=== PATIENT | male | born 1970 | race Caucasian/White ===

== ENCOUNTER 2017-05-11 17:32 | Emergency (ER) | payer OTHER ==
[~2017-05-11] VITALS: Ht 177.8 cm; Wt 104.3 kg
--- NOTE | 2017-05-11 17:38 | NUR ---
CALLED IN WAITING ROOM NO ANSWER
--- NOTE | 2017-05-11 17:40 | NUR ---
PT AMBULATORY TO ER BED 09 C/O DIFFUSE ABDOMINAL PAIN W/ N/V X 5 DAYS. PT STATES HE STARTED HAVING DIARRHEA YESTERDAY. GOWNED AND PLACED ON MONITOR. NAD NOTED. AWAITING MD RAMOS.
--- NOTE | 2017-05-11 18:13 | NUR ---
DR CERAVNTES AT BEDSIDE FOR EVAL.
--- NOTE | 2017-05-11 18:23 | NUR ---
IV LINE STARTED. BLOOD DRAWN AND SENT TO LAB.
[2017-05-11] MEDS ORDERED: HYDROCODONE/APAP 10/325MG 1 EA TABLET ONE (18:29)
[2017-05-11] MEDS ORDERED: FAMOTIDINE/PF INJ 20 MG/2 ML VIAL IV ONE ×2 (18:29→18:30)
[2017-05-11] MEDS ORDERED: ONDANSETRON HCL/PF 4 MG/2 ML VIAL ONE (18:29)
[2017-05-11] MEDS ORDERED: ONDANSETRON HCL/PF 4 MG/2 ML VIAL IVP ONE (18:30)
[2017-05-11] MEDS ORDERED: IV NS 0.9% 1,000 ML BAG IV ONE (18:30)
[2017-05-11] MEDS ORDERED: HYDROCODONE/APAP 10/325MG 1 EA TABLET PO ONE (18:30)
[2017-05-11 18:39] LABS: CALCIUM, SERUM 9.2 mg/dL (8.5-10.1); CREATININE 1.3 mg/dL (0.6-1.3); POTASSIUM 4.6 mmol/L (3.5-5.1)
[2017-05-11 18:45] LABS: ALBUMIN 3.3 g/dL (3.4-5.0); BILIRUBIN,TOTAL 0.3 mg/dL (0.2-1.0); TOTAL PROTEIN, SERUM 6.9 g/dL (6.4-8.2)
[2017-05-11 19:04] LABS: BASOPHILS # (AUTO) 0.1 /CMM (0.0-0.2); BASOPHILS % (AUTO) 0.6 % (0.0-2.0); EOSINOPHILS # (AUTO) 0.1 /CMM (0.0-0.7); EOSINOPHILS % (AUTO) 1.4 % (0.0-6.0); HEMATOCRIT 39 % (39-51); HEMOGLOBIN 13.1 g/dL (13.5-17.5); LYMPHOCYTES # (AUTO) 2.8 /CMM (0.8-4.8); LYMPHOCYTES % (AUTO) 26.3 % (20.0-44.0); MEAN CORPUSCULAR HEMOGLOBIN 29 PG (26.0-33.0); MEAN CORPUSCULAR HGB CONC 34 g/dl (31.0-36.0); MEAN CORPUSCULAR VOLUME 84 fL (80-96); MONOCYTES # (AUTO) 0.6 /CMM (0.1-1.30); MONOCYTES % (AUTO) 5.8 % (2.0-12.0); NEUTROPHILS # (AUTO) 6.9 /CMM (1.8-8.9); NEUTROPHILS % (AUTO) 65.9 % (43.0-81.0); PLATELET COUNT (AUTO) 289 /CMM (150-450); RDW COEFFICIENT OF VARIATION 13.2 (11.5-15.0); RED BLOOD CELL COUNT(AUTO) 4.61 MIL/uL (4.5-6.0); WHITE BLOOD COUNT (AUTO) 10.5 K/uL (4.3-11.0)
--- NOTE | 2017-05-11 19:24 | NUR ---
PT NOW C/O S/I PLAN TO JUMP INTO THE [facility]ACKS. DR BILLY MULLINS.
--- NOTE | 2017-05-11 19:50 | NUR ---
CALLED [facility] FOR PSYCH EVAL, ETA 1 HOUR
[2017-05-11 20:00] LABS: APPEARANCE,URINE Slightly Cloudy (CLEAR); BILIRUBIN,URINE Negative (NEGATIVE); BLOOD, URINE Negative Ery/uL (NEGATIVE); COLOR,URINE Yellow (YELLOW); KETONES,URINE Negative (NEGATIVE); LEUKOCYTE ESTERASE ,URINE Negative (NEGATIVE); NITRITE, URINE Negative (NEGATIVE); PH,URINE 5.5 (5.0-8.0); PROTEIN,URINE Negative (NEGATIVE); UGLUCOSE Negative (NEGATIVE); UROBILINOGEN,URINE 0.2 EU/dL (0.2)
--- NOTE | 2017-05-11 20:35 | NUR ---
[facility]ILLON RN AT BEDSIDE FOR PSYCH EVAL.
--- NOTE | 2017-05-11 21:43 | NUR ---
CALLED [facility] FOR TRANSPORT TO [facility], ETA 90 MIN
[2017-05-11 22:49] VITALS: BP 125/84
--- NOTE | 2017-05-11 22:50 | NUR ---
PT SLEEPPING. AROUASABLE TO VERBAL STIMULI. STABLE VITALS.
--- NOTE | 2017-05-11 23:19 | NUR ---
PT TRANSFERED TO [facility]. STABLE CONDITION.
== END 2017-05-11 23:20 ==
LOC: ER 17:38
DX: K52.9 Noninfective gastroenteritis and colitis, unspecified (principal); R45.851 Suicidal ideations; F20.9 Schizophrenia, unspecified; F17.200 Nicotine dependence, unspecified, uncomplicated
CPT/HCPCS: 36415; 80048; 80076; 80305; 81001; 83690; 85025; 96374; 96375; 99285; A4606; G0480; J2405; J3490; J7030; Z7610; 81000-TC